=== PATIENT | male | born 1970 | race Caucasian/White ===

== ENCOUNTER → 2016-12-29 | Outpatient (REF) | payer SELFPAY ==
[2016-12-29 12:13] LABS: BASO % 0.4 % (0.0-1.0); EOS # 0.1 K/mm3 (0.0-0.50); LARGE UNSTAINED CELL # 0.1 K/mm3 (0.0-0.4); LARGE UNSTAINED CELL % 1.3 % (0.0-4.0); LYMPH # 2.8 K/mm3 (1.5-4.5); LYMPH % 39.1 % (24.0-44.0); MEAN CORPUSCULAR HEMOGLOBIN 32.5 pg (27.0-33.0); MEAN CORPUSCULAR HGB CONC 34.1 g/dl (32.0-36.5); MEAN CORPUSCULAR VOLUME 95.3 fl (80.0-96.0); MONO # 0.3 K/mm3 (0.0-0.8); NEUTROPHILS # 3.8 K/mm3 (1.8-7.7); NEUTROPHILS % 53.2 % (36.0-66.0); PLATELET COUNT, AUTOMATED 312 k/mm3 (150-450); RED CELL DISTRIBUTION WIDTH 12.9 % (11.5-14.5); WHITE BLOOD COUNT 7.1 K/mm3 (4.0-10.0)
[2016-12-29 12:46] LABS: ERYTHROCYTE SEDIMENTATION RATE 28 mm/hr (0-15)
[2016-12-31 00:06] LABS: Lyme Disease IgG/IgM Antibodie <0.91 ISR (0.00-0.90); Lyme Disease IgM Ab Quantitati <0.80 index (0.00-0.79)
== END ==
LOC: M LABDRAW1 11:12
PROVIDERS: ATTEND Orthopaedic Surgery
DX: M75.111 Incomplete rotator cuff tear or rupture of right shoulder, not specified as traumatic (principal)

== ENCOUNTER → 2019-12-18 | Outpatient (REF) | payer MEDICARE ==
[2019-12-18 17:00] LABS: BASO % 0.5 % (0.0-1.0); EOS # 0.2 10^3/uL (0.0-0.5); EOS % 3.2 % (0.0-3.0); HEMATOCRIT 43.3 % (42.0-52.0); HEMOGLOBIN 14.5 g/dl (13.5-17.5); LYMPH # 2.8 10^3/uL (1.5-5.0); LYMPH % 46.3 % (24.0-44.0); MEAN CORPUSCULAR HEMOGLOBIN 31.6 pg (27.0-33.0); MEAN CORPUSCULAR HGB CONC 33.5 g/dl (32.0-36.5); MEAN CORPUSCULAR VOLUME 94.3 fl (80.0-96.0); MONO # 0.4 10^3/uL (0.0-0.8); NEUTROPHILS # 2.6 10^3/uL (1.5-8.5); NEUTROPHILS % 42.8 % (36.0-66.0); PLATELET COUNT, AUTOMATED 300 10^3/uL (150-450); RED BLOOD COUNT 4.59 10^6/uL (4.30-6.10)
[2019-12-18 17:04] LABS: ALBUMIN 3.9 GM/DL (3.2-5.2); ALT/SGPT 39 U/L (12-78); BILIRUBIN,TOTAL 0.3 MG/DL (0.2-1.0); BLOOD UREA NITROGEN 10 MG/DL (7-18); C REACTIVE PROTEIN QUANTITATIV 0.97 MG/DL (0.00-0.30); CALCIUM LEVEL 8.9 MG/DL (8.5-10.1); CARBON DIOXIDE LEVEL 29 MEQ/L (21-32); CHLORIDE LEVEL 105 MEQ/L (98-107); CPK CREATINE PHOSPHOKINASE 90 U/L (39-308); CREATININE FOR GFR 0.76 MG/DL (0.70-1.30); GLOMERULAR FILTRATION RATE > 60.0 (>56); GLUCOSE, FASTING 108 MG/DL (70-100); POTASSIUM SERUM 3.9 MEQ/L (3.5-5.1); RHEUMATOID FACTOR QUANT < 10.0 IU/ML (<15.0); SODIUM LEVEL 139 MEQ/L (136-145); TOTAL PROTEIN 7.9 GM/DL (6.4-8.2)
[2019-12-18 17:57] LABS: ERYTHROCYTE SEDIMENTATION RATE 36 mm/hr (0-20)
== END ==
LOC: M SFHCRHEU 12:02
PROVIDERS: ATTEND Internal Medicine
DX: M25.50 Pain in unspecified joint (principal); M54.5 Low back pain; M79.18 Myalgia, other site

== ENCOUNTER → 2019-12-18 | Outpatient (CLI) | payer MEDICARE ==
--- NOTE | 2019-12-18 14:08 | REPPI ---
LUMBOSACRAL SPINE: Five views lumbosacral spine performed. There is a transitional lumbar vertebral body with partial sacralization of L5. There is no compression fracture. There is normal lumbar lordosis with no spondylolysis or spondylolisthesis. There is mild spurring of L2 through L5. Moderate disc space narrowing, subchondral sclerosis and vacuum phenomenon is noted at L4-5. There is mild narrowing at L5-S1. There is sclerosis and spurring at the facets of L4-5 and L5-S1. The posterior elements are intact. IMPRESSION: Partial sacralization of L5. Moderate degenerative disc changes L4-5. Electronically Signed by Renan Badillo MD 12/18/2019 02:22 P
--- NOTE | 2019-12-18 14:12 | REPPI ---
SACROILIAC JOINTS: Four views of the sacroiliac joints are performed. I do not see significant joint space narrowing at either sacroiliac joint. There is some minimal sclerotic change along the iliac side of the sacroiliac joints. No other sacroiliac abnormality is seen. IMPRESSION: Minimal subchondral sclerosis along the sacroiliac joints bilaterally on the iliac side of the joints with out joint space narrowing. Electronically Signed by Renan Badillo MD 12/18/2019 02:22 P
--- NOTE | 2019-12-18 14:15 | REPPI ---
PELVIS AND BILATERAL HIPS: AP view of the pelvis and AP and frogleg views of both hips performed. No acute fracture or dislocation is seen. There is minimal subchondral sclerosis along the sacroiliac joints bilaterally on the iliac side of both joints. Sclerotic lesion in the left femoral head laterally is consistent with a bone island. This was seen on prior CT in 2012. Minor arthritic changes are seen at both hip joints in the form of very mild joint space narrowing and subchondral sclerosis. A phlebolith is seen in the left pelvis. IMPRESSION: Mild degenerative changes of the hip joints bilaterally. Bone island proximal left femur. Minimal sclerosis along the sacroiliac joints on the iliac side of these joints. Electronically Signed by Renan Badillo MD 12/18/2019 02:22 P
--- NOTE | 2019-12-18 14:17 | REPPI ---
BILATERAL HAND SERIES: Four views of each hand performed. No acute fracture or dislocation is seen. I do not see significant arthritic changes bilaterally. No bone lesion is seen. IMPRESSION: Negative bilateral hand series. Electronically Signed by Renan Badillo MD 12/18/2019 02:22 P
== END ==
LOC: M PLAIMG 12:22
PROVIDERS: ATTEND Internal Medicine
DX: M16.0 Bilateral primary osteoarthritis of hip (principal); I87.8 Other specified disorders of veins; M51.36 Other intervertebral disc degeneration, lumbar region; M54.5 Low back pain; M25.50 Pain in unspecified joint
CPT/HCPCS: 72110; 72202; 73130; 73502; 80053; 81374; 82550; 85025; 85652; 86038; 86140; 86200; 86431; 86480; 86704; 86803; 87340; G0463

== ENCOUNTER → 2020-04-23 | Outpatient (CLI) | payer OTHER | LOC: M LABSMTC 09:39 | PROVIDERS: ATTEND Orthopaedic Surgery | DX: Z20.828 Contact with and (suspected) exposure to other viral communicable diseases (principal) ==